=== PATIENT | male | born 1990 | race Two or more races ===

== ENCOUNTER 2017-07-29 22:02 | Emergency (ER) | payer OTHER ==
[~2017-07-29] VITALS: Ht 180.3 cm; Wt 77.0 kg
[2017-07-30 01:24] VITALS: BP 140/77
== END 2017-07-30 01:24 | DRG 552 ==
LOC: ED 22:02
DX: M54.2 Cervicalgia (principal); R20.0 Anesthesia of skin; V48.5XXA Car driver injured in noncollision transport accident in traffic accident, initial encounter; Y92.410 Unspecified street and highway as the place of occurrence of the external cause